=== PATIENT | female | born 1940 | race Caucasian/White ===

== ENCOUNTER → 2019-08-31 | Emergency (ER) | payer OTHER ==
[~2019-08-31] VITALS: Ht 152.4 cm; Wt 108.9 kg
[~2019-08-31] MED LIST: CARDIZEM120 MG; HYZAAR 100-12.1 EACH; MACROBID 100 M100 MG PO; NEURONTIN300 MG; PYRIDIUM100 MG PO; SINGULAIR10 MG; SYNTHROID100 MCG
== END | disposition home or self-care (01) ==
LOC: EDBD 16:53 → ER 16:53
DX: R10.2 Pelvic and perineal pain (principal); K62.5 Hemorrhage of anus and rectum; E03.8 Other specified hypothyroidism; K57.30 Diverticulosis of large intestine without perforation or abscess without bleeding; R19.00 Intra-abdominal and pelvic swelling, mass and lump, unspecified site; K57.90 Diverticulosis of intestine, part unspecified, without perforation or abscess without bleeding; I13.10 Hypertensive heart and chronic kidney disease without heart failure, with stage 1 through stage 4 chronic kidney disease, or unspecified chronic kidney disease; N18.9 Chronic kidney disease, unspecified

== ENCOUNTER 2020-01-27 08:02 | Day surgery (SDC) | payer OTHER | END 2020-01-27 14:15 | disposition home or self-care (01) | LOC: AMB-ENDOS 08:02 → ADM 13:30 → AMB-ENDOS 13:30 | PROVIDERS: ATTEND Colon & Rectal Surgery | DX: K62.89 Other specified diseases of anus and rectum (principal); K64.1 Second degree hemorrhoids ==

== ENCOUNTER 2020-02-20 08:39 | Outpatient (CLI) | payer OTHER | END 2020-02-20 08:47 | disposition home or self-care (01) | LOC: TOM 08:39 | PROVIDERS: ATTEND Colon & Rectal Surgery | DX: K57.20 Diverticulitis of large intestine with perforation and abscess without bleeding (principal); N32.1 Vesicointestinal fistula ==